=== PATIENT | male | born 1960 | race American Indian/Alaskan Native ===

== ENCOUNTER 2019-05-10 06:29 | Day surgery (SDC) | payer MEDICARE, OTHER ==
[2019-05-10] MEDS ORDERED: NACL 0.9% 1000 ML 1,000 ML IV SCH (07:00)
[2019-05-10] MEDS ORDERED: WATER FOR IRRIG STERILE IR ONE (07:23)
[2019-05-10] MEDS ORDERED: WATER FOR IRRIG STERILE ONE (07:23)
[2019-05-10] MEDS ORDERED: DIPRIVAN 10 MG/ML IV ONE ×2 (07:32)
[2019-05-10] MEDS ORDERED: XYLOCAINE 2% INFILTRATI ONE (07:39)
--- NOTE | 2019-05-10 07:47 | Anesthesia Consultation ---
Anesthesia Consult and Med Hx Date of service: 05/10/19 - Airway Anesthetic Teeth Evaluation: Good ROM Head & Neck: Adequate Mental/Hyoid Distance: Adequate Mallampati Class: Class II Intubation Access Assessment: Probably Good - Pre-Operative Health Status ASA Pre-Surgery Classification: ASA3 Proposed Anesthetic Plan: MAC - Cardiovascular System Hx Hypertension: Yes Hx Peripheral Vascular Disease: Yes (ulcers 2nd and 4th fingers right hand) - Central Nervous System CVA: Yes (2015, no residual symptoms) - Endocrine Hx Renal Disease: Yes Hx End Stage Renal Disease: Yes () Hx Insulin Dependent Diabetes: Yes
--- NOTE | 2019-05-10 07:48 | Anesthesia Day of Surgery ---
Anesthesia Day of Surgery - Day of Surgery Patient Examined: Yes Patient H&P Reviewed: Yes Patient is NPO: Yes
--- NOTE | 2019-05-10 08:38 | Procedure Note ---
Date of procedure: 05/10/19 Pre-op diagnosis: Colon Polyp Screening Post-op diagnosis: other (No Colon Polyps noted/Moderate,Left Colon diverticuli/Minor,Internal Hemorrhoid) Procedure: Colonoscopy Anesthesia: MAC Surgeon: SONIA GARCIA Estimated blood loss: none Pathology: none Condition: stable Disposition: same day (Encourage fiber intake. Resume hiom emedication and follow up in 1 to 2 weeks ([phone]).)
--- NOTE | 2019-05-10 08:48 | History and Physical Report ---
HISTORY OF PRESENT ILLNESS: The patient is a 58-year-old -[place] gentleman with underlying history of diabetes mellitus type 2, hypertension, end-stage renal disease, history of CVA in 2016 with some left-sided weakness. The patient denies any family history of any kind of cancer and has been sent for evaluation as part of colon polyp screening. He has never had a colonoscopy before. ALLERGIES: He has no known allergies. SOCIAL HISTORY: Denies any history of smoking or alcohol use, had a stroke in 2016. No flu shots. MEDICATIONS: Include nifedipine, sodium bicarbonate, cholecalciferol, vitamin D3, vitamin C, Tera Aspirin and NovoLog. PHYSICAL EXAMINATION: VITAL SIGNS: Afebrile. Vitals otherwise was stable. Height is 6 feet, weight is 184 pounds. HEENT: Shows no JVD. LUNGS: Show reduced breath sounds. He has a shunt on his left side for dialysis and has left-sided weakness. CARDIOVASCULAR: Grossly normal. ABDOMEN: Soft. Bowel sounds present. NEUROLOGIC: He is alert and oriented. ASSESSMENT AND PLAN: Diabetes mellitus type 2, hypertension, end-stage renal disease, history of cerebrovascular accident with left-sided weakness. Plan to do a colon polyp screening at [facility] on 05/10/2019. JOB# [id number] ROSA/ANTONIO
[2019-05-10 09:03] VITALS: BP 141/84
== END 2019-05-10 06:30 | disposition home or self-care (01) ==
LOC: GIO 06:29
DX: Z12.11 Encounter for screening for malignant neoplasm of colon (principal); K57.30 Diverticulosis of large intestine without perforation or abscess without bleeding; K64.8 Other hemorrhoids; I12.0 Hypertensive chronic kidney disease with stage 5 chronic kidney disease or end stage renal disease; E11.22 Type 2 diabetes mellitus with diabetic chronic kidney disease; N18.6 End stage renal disease; E11.51 Type 2 diabetes mellitus with diabetic peripheral angiopathy without gangrene; E78.00 Pure hypercholesterolemia, unspecified; Z79.01 Long term (current) use of anticoagulants; Z79.899 Other long term (current) drug therapy; Z79.82 Long term (current) use of aspirin; Z99.2 Dependence on renal dialysis; Z86.73 Personal history of transient ischemic attack (TIA), and cerebral infarction without residual deficits
CPT/HCPCS: 82962; J2704; J7030